=== PATIENT | female | born 1980 | race Caucasian/White ===

== ENCOUNTER 2022-08-19 13:44 | Emergency (ER) | payer OTHER ==
[~2022-08-19] VITALS: Ht 152.4 cm; Wt 77.1 kg
== END 2022-08-19 14:17 | disposition home or self-care (01) ==
LOC: ER 13:50
DX: Z45.2 Encounter for adjustment and management of vascular access device (principal); K21.9 Gastro-esophageal reflux disease without esophagitis; Z98.84 Bariatric surgery status
CPT/HCPCS: 99283